=== PATIENT | female | born 1975 | race Caucasian/White ===

== ENCOUNTER 2017-11-24 05:43 | Emergency (ER) | payer MEDICAID, OTHER ==
[~2017-11-24] VITALS: Ht 167.6 cm; Wt 77.1 kg
[2017-11-24 05:47] VITALS: BP 129/61
[2017-11-24] MEDS ORDERED: LORazepam 1 MG TAB PO ONE (06:15)
[2017-11-24] MEDS ORDERED: KETOROLAC 30 MG/ML VIAL IM ONE (06:15)
[2017-11-24] MEDS ORDERED: PHENYLEPHRINE 0.5% 15 ML BTL NS ONE (07:00)
[2017-11-24 07:10] VITALS: BP 129/61
== END 2017-11-24 07:10 | disposition home or self-care (01) ==
LOC: MED 05:43
DX: J06.9 Acute upper respiratory infection, unspecified (principal)
CPT/HCPCS: 71045; 96372; 99283; J1885